=== PATIENT | male | born 1975 | race Caucasian/White ===

== ENCOUNTER → 2016-06-18 | Outpatient (CLI) | payer OTHER | LOC: CIMAGING 16:12 → FIMAGING 17:40 | PROVIDERS: ATTEND Family Medicine | DX: M54.6 Pain in thoracic spine (principal); R91.8 Other nonspecific abnormal finding of lung field ==

== ENCOUNTER 2016-07-03 09:44 | Emergency (ER) | payer OTHER ==
[2016-07-03 09:54] VITALS: BP 159/80; PULSE 80; RESP 20; TEMP 97.5; O2SAT 93
--- NOTE | 2016-07-03 10:05 | UCPHY ---
H & P Patient Type: Established Chief Complaint Nursing Narrative: SLIPPED ON 5 STEPS YESTERDAY AT HOME;PAIN, SWELLING, BRUISING R FOOT/ANKLE Time Seen by Provider: 07/03/16 09:55 HPI/ROS: CHIEF COMPLAINT: Right foot and ankle pain HISTORY OF PRESENT ILLNESS: The patient presents to the ED with complaints of moderate right foot and ankle pain after he twisted and fell yesterday on a wet floor. The patient denies head injury, neck pain, numbness, weakness, chest pain, shortness of breath or additional traumatic injury. The patient is able to ambulate with discomfort. REVIEW OF SYSTEMS: A comprehensive 10 point review of systems is otherwise negative aside from elements mentioned in the history of present illness. Source: Patient Exam Limitations: No limitations - Personal History Current Tetanus Diphtheria and Acellular Pertussis (TDAP): Yes Tetanus Vaccine Date: 2014 - Medical/Surgical History Hx Asthma: No Hx Chronic Respiratory Disease: No Hx Diabetes: No Hx Cardiac Disease: No Hx Renal Disease: No Hx Cirrhosis: No Hx Alcoholism: No Hx HIV/AIDS: No Hx Splenectomy or Spleen Trauma: No Other PMH: pmh- obesity, retinal detachment x2 - Family History Significant Family History: No pertinent family hx - Social History Smoking Status: Never smoked - Physical Exam Exam: General appearance: alert no distress Right ankle: There is swelling and tenderness over the lateral. Ankle joint is stable and there is no tenderness over the Achilles tendon. The foot is tender along the dorsum and 5th metatarsal Neurologic exam: The patient has normal sensation and motor function distal to the injury. Vascular exam: Normal pulses and capillary refill in the foot DIFFERENTIAL DIAGNOSIS: After history and physical exam differential diagnosis was considered for ankle injury including sprain, fracture, dislocation and soft tissue injury. Constitutional: Initial Vital Signs Temperature (C) 36.4 C 07/03/16 09:50 Heart Rate 80 07/03/16 09:50 Respiratory Rate 20 07/03/16 09:50 Blood Pressure 159/80 H 07/03/16 09:50 O2 Sat (%) 93 07/03/16 09:50 O2 Delivery Mode Room Air Allergies/Adverse Reactions: Penicillins Allergy (Unknown, Verified 07/03/16 09:49) Unknown Home Medications: Medication Instructions Recorded Dorzolamide-Timolol Eye Drops 11/11/13 Alphagan 0.2% 05/22/15 Cosopt (RX) 05/22/15 Allopurinol 07/03/16 Prednisone 07/03/16 Medical Decision Making - Diagnostics Imaging Results: Imaging Impressions Ankle X-Ray 07/03/16 10:04 Impression: Soft tissue swelling with no acute fracture observed. RIGHT FOOT, at 10:20 AM: Bone mineralization is preserved. There is no acute fracture or dislocation. The tarsometatarsal alignment is anatomic. A plantar calcaneal degenerative enthesophyte is seen. There is some mild soft tissue swelling. Impression: There is no acute fracture observed. Foot X-Ray 07/03/16 10:07 Impression: Soft tissue swelling with no acute fracture observed. RIGHT FOOT, at 10:20 AM: Bone mineralization is preserved. There is no acute fracture or dislocation. The tarsometatarsal alignment is anatomic. A plantar calcaneal degenerative enthesophyte is seen. There is some mild soft tissue swelling. Impression: There is no acute fracture observed. ED Course/Re-evaluation: The patient presents to the ED for evaluation of right foot and ankle pain. The patient has no evidence of an obvious fracture noted on his x-rays. The patient will be instructed to ice the area of pain and swelling. He should follow up with our on-call orthopedic surgeon for any pain or swelling which persists past 10 days as this may be the sign of an injury not seen on the x- rays today. Differential Diagnosis: Differential diagnosis considered includes fracture, sprain, dislocation Departure - Departure Disposition: Home, Routine, Self-Care Clinical Impression: Sprain of right foot Condition: Good Instructions: Foot Sprain (ED) Additional Instructions: 1. Take Ibuprofen or Motrin 600 mg by mouth three times a day. 2. Please follow up with the orthopedic surgeon you have been referred to for any pain which persists past 10 days. As this may be the sign of an injury not seen on the x-ray today. Referrals: Du Manley MD [Primary Care Provider] - As per Instructions - PQRS PQRS Measurement: NA
== END 2016-07-03 10:50 | disposition home or self-care (01) ==
LOC: CED 09:44
DX: S93.601A Unspecified sprain of right foot, initial encounter (principal); M25.571 Pain in right ankle and joints of right foot; W18.39XA Other fall on same level, initial encounter
CPT/HCPCS: 73610-PO; 73630-PO; 99214-PO; G0463-PO

== ENCOUNTER 2016-10-03 07:09 | Emergency (ER) | payer OTHER ==
[2016-10-03 07:14] VITALS: RESP 16
--- NOTE | 2016-10-03 07:33 | EDPHY ---
H & P Time Seen by Provider: 10/03/16 07:32 HPI/ROS: Chief complaint. Abdominal pain HPI. 40-year-old male with abdominal pain that started at 8:00 p.m. last night. [facility] and had sudden onset of right lower quadrant pain. He was seen at [facility] last night and had a CT scan which apparently showed only a cyst on his left kidney. They do not have the report with them. Today he had continued pain and it on the also involves his right flank. He notes his urine is dark with a reddish tint. He has no pain now however. His pain has not been worse with movement or position. It is similar to previous kidney stone that he had 1 year ago. No central or left-sided abdominal pain. No chest discomfort or trouble breathing. He reports that his penis and testicles are normal. He has had no fever. No urinary symptoms other than dark and slightly reddish urine. ROS Constitutional. no fever/chills, no weakness Eyes. no problems with vision ENT. no sore throat, no nasal drainage Cardiovascular. no chest pain Respiratory. no shortness of breath, no cough Abdominal. Right-sided abdominal pain . Dark urine MS. no calf pain/swelling, no neck/back pain, no joint pain Skin. no rash Lymph. no swollen glands Neuro. no headache, no dizziness, no difficulty walking or with speech Past Medical/Surgical History: Past medical history obesity, retinal detachment, gout Social History: , nonsmoker, no alcohol Smoking Status: Never smoked Physical Exam: General Appearance: Alert well-developed male mild distress vital signs stable Eyes: Pupils equal and round no pallor or injection. ENT, Mouth: Mucous membranes are moist. Respiratory: There are no retractions, lungs are clear to auscultation. Cardiovascular: Regular rate and rhythm. Gastrointestinal: Abdomen is soft and nontender, no masses, bowel sounds normal. Patient shows me tenderness in the right flank and right lower quadrant however it is not painful to palpation Neurological: Awake and alert, sensory and motor exams grossly normal. Skin: Warm and dry, no rashes. Musculoskeletal: Neck is supple nontender. Extremities symmetrical, full range of motion. Psychiatric: Patient is oriented X 3, there is no agitation. Constitutional: Initial Vital Signs Temperature (C) 36.3 C 10/03/16 07:12 Heart Rate 75 07/19/17 07:12 Respiratory Rate 16 10/03/16 07:12 Blood Pressure 179/97 H 10/03/16 07:12 O2 Sat (%) 92 10/03/16 07:12 O2 Delivery Mode Room Air Allergies/Adverse Reactions: Penicillins Allergy (Unknown, Verified 07/03/16 09:49) Unknown Home Medications: Medication Instructions Recorded Dorzolamide-Timolol Eye Drops 11/11/13 Alphagan 0.2% 05/22/15 Cosopt (RX) 05/22/15 Allopurinol 07/03/16 Prednisone 07/03/16 Cephalexin [Keflex (*)] 500 mg PO TID #21 cap 10/03/16 oxyCODONE/APAP 5/325 [Percocet 1 tab PO Q4-6PRN PRN #10 tab 10/03/16 5/325] Medical Decision Making - Diagnostics Imaging Results: CT abdomen and pelvis without IV contrast shows a 1-2 mm stone at the right UVJ. No proximal hydronephrosis. Incidental fatty liver finding Procedures: IV normal saline ED Course/Re-evaluation: Re-evaluation 8:55 a.m.. Patient, his , and I discussed laboratory evaluation and recommendation for CT scan as this is likely kidney stone. They expressed understanding and agreement. Patient continues without pain Re-evaluation again 9:25 a.m.. The patient and I discussed the CT results. He is comfortable with outpatient follow-up. We discussed treatment plan including criteria for return importance of follow-up and further evaluation. He expresses understanding and agreement Patient is currently without any pain Differential Diagnosis: I considered appendicitis, diverticulitis, urinary tract infection including pyelonephritis, kidney stone - Data Points Laboratory Results: Laboratory Results 10/03/16 07:20 10/03/16 07:20 10/03/16 10/03/16 10/03/16 07:20 07:20 07:20 WBC 11.20 10^3/uL H 10^3/uL (3.80-9.50) RBC 4.94 10^6/uL 10^6/uL (4.40-6.38) Hgb 14.9 g/dL g/dL (13.7-17.5) Hct 45.1 % % (40.0-51.0) MCV 91.3 fL fL (81.5-99.8) MCH 30.2 pg pg (27.9-34.1) MCHC 33.0 g/dL g/dL (32.4-36.7) RDW 13.0 % % (11.5-15.2) Plt Count 281 10^3/uL 10^3/uL (150-400) MPV 10.0 fL fL (8.7-11.7) Neut % (Auto) 60.5 % % (39.3-74.2) Lymph % (Auto) 25.8 % % (15.0-45.0) [place] % (Auto) 9.0 % % (4.5-13.0) Eos % (Auto) 3.4 % % (0.6-7.6) Baso % (Auto) 0.8 % % (0.3-1.7) Nucleat RBC Rel Count 0.0 % % (0.0-0.2) Absolute Neuts (auto) 6.77 10^3/uL H 10^3/uL (1.70-6.50) Absolute Lymphs (auto) 2.89 10^3/uL 10^3/uL (1.00-3.00) Absolute Monos (auto) 1.01 10^3/uL H 10^3/uL (0.30-0.80) Absolute Eos (auto) 0.38 10^3/uL 10^3/uL (0.03-0.40) Absolute Basos (auto) 0.09 10^3/uL 10^3/uL (0.02-0.10) Absolute Nucleated RBC 0.00 10^3/uL 10^3/uL (0-0.01) Immature Gran % 0.5 % % (0.0-1.1) Immature Gran # 0.06 10^3/uL 10^3/uL (0.00-0.10) Sodium 147 mEq/L H mEq/L (134-144) Potassium 4.4 mEq/L mEq/L (3.5-5.2) Chloride 111 mEq/L H mEq/L (97-110) Carbon Dioxide 23 mEq/l mEq/l (22-31) Anion Gap 13 mEq/L mEq/L (8-16) BUN 17 mg/dL mg/dL (7-23) Creatinine 0.9 mg/dL mg/dL (0.7-1.3) Estimated GFR > 60 Glucose 87 mg/dL mg/dL (70-100) Calcium 9.4 mg/dL mg/dL (8.5-10.4) Urine Color RED Urine Appearance MODERATELY TURBID Urine pH 5.0 (5.0-7.5) Ur Specific Tok 1.020 (1.002-1.030) Urine Protein 2+ H (NEGATIVE) Urine Ketones NEGATIVE (NEGATIVE) Urine Blood 2+ H (NEGATIVE) Urine Nitrate NEGATIVE (NEGATIVE) Urine Bilirubin NEGATIVE (NEGATIVE) Urine Urobilinogen NEGATIVE EU EU (0.2-1.0) Ur Leukocyte Esterase NEGATIVE (NEGATIVE) Urine RBC 50-182 /hpf H /hpf (0-3) Urine WBC 25-50 /hpf H /hpf (0-3) Ur Epithelial Cells NONE SEEN /lpf /lpf (NONE-1+) Urine Bacteria TRACE /hpf H /hpf (NONE SEEN) Urine Mucus 3+ /lpf H /lpf (NONE-1+) Urine Glucose NEGATIVE (NEGATIVE) Medications Given: Discontinued Medications Sodium Chloride (Ns) 1,000 mls @ 0 mls/hr IV EDNOW ONE; Wide Open PRN Reason: Protocol Stop: 10/03/16 07:43 Last Admin: 10/03/16 07:49 Dose: 1,000 mls Departure - Departure Disposition: Home, Routine, Self-Care Clinical Impression: Renal colic on right side Condition: Good Instructions: Kidney Stones (ED) Additional Instructions: Drink plenty of fluids to keep your urine clear. Cephalexin as antibiotic. Strain her urine to collect kidney stone and save for analysis. Ibuprofen 600 mg every 6 hours next 24 hours. Percocet in addition if necessary for pain. Return for worsening pain, fever, vomiting. Recheck in 2 days. Referrals: Du Manley MD [Primary Care Provider] - 2-3 days without fail Maximus Marin MD [Medical Doctor] - As per Instructions Prescriptions: Cephalexin [Keflex (*)] 500 mg PO TID #21 cap oxyCODONE/APAP 5/325 [Percocet 5/325] 1 tab PO Q4-6PRN PRN #10 tab PRN Reason: Pain, Moderate
[2016-10-03] MEDS ORDERED: NS 1,000 ML IV ONE (07:42)
[2016-10-03 07:47] LABS: % IMMATURE GRANULYOCYTES 0.5 % (0.0-1.1); ABSOLUTE IMMATURE GRANULOCYTES 0.06 10^3/uL (0.00-0.10); ADD DIFF? NO; ADD MORPH? NO; ADD SCAN? NO; ATYPICAL LYMPHOCYTE FLAG 0 (0-99); FRAGMENT RBC FLAG 0 (0-99); HEMATOCRIT 45.1 % (40.0-51.0); HEMOGLOBIN 14.9 g/dL (13.7-17.5); LEFT SHIFT FLG 0 (0-99); LIPEMIA HEMOLYSIS FLAG 80 (0-99); MEAN CELL HEMOGLOBIN 30.2 pg (27.9-34.1); MEAN CELL VOLUME 91.3 fL (81.5-99.8); PLATELET CLUMPS FLAG 0 (0-99); PLATELET COUNT 281 10^3/uL (150-400); RED BLOOD CELL COUNT 4.94 10^6/uL (4.40-6.38)
[2016-10-03 07:54] LABS: ANION GAP 13 mEq/L (8-16); CALCIUM 9.4 mg/dL (8.5-10.4); CARBON DIOXIDE 23 mEq/l (22-31); CHLORIDE 111 mEq/L (97-110); CREATININE 0.9 mg/dL (0.7-1.3); GLOMERULAR FILTRATION RATE > 60; GLUCOSE 87 mg/dL (70-100); POTASSIUM 4.4 mEq/L (3.5-5.2); SODIUM 147 mEq/L (134-144)
[2016-10-03 07:58] LABS: COLOR RED; LEUKOCYTE ESTERASE,URINE NEGATIVE (NEGATIVE); NITRITE,URINE NEGATIVE (NEGATIVE)
[2016-10-03 08:12] LABS: BACTERIA TRACE /hpf (NONE SEEN); MUCUS 3+ /lpf (NONE-1+); RBC,URINE 50-182 /hpf (0-3); WBC,URINE 25-50 /hpf (0-3)
[2016-10-03 09:54] VITALS: BP 147/89; PULSE 73; TEMP 98.4; O2SAT 96
== END 2016-10-03 09:53 | disposition home or self-care (01) ==
DX: N23 Unspecified renal colic (principal); E86.9 Volume depletion, unspecified

== ENCOUNTER 2017-12-23 06:56 | Emergency (ER) | payer OTHER ==
--- NOTE | 2017-12-23 06:59 | EDPHY ---
H & P Time Seen by Provider: 12/23/17 07:06 HPI/ROS: CHIEF COMPLAINT: Left flank pain HISTORY OF PRESENT ILLNESS: Patient states that he thinks he has a kidney stone. Feels identical to his symptoms from last summer. He had a little bit of chills last night has had a cough for couple of days and this morning at 5: 00 a.m. Developed left flank pain which radiates around to his anterior abdomen. Not better worse with movement, his urine was a little bit darker than usual, no dysuria or hematuria or testicular or penile symptoms. No injury or trauma. Symptoms were severe earlier but are mild now. REVIEW OF SYSTEMS: Eye: no change in vision ENT: no sore throat Cardiac: no chest pain or syncope Pulmonary: No sputum production, not short of breath Abdomen: No vomiting or diarrhea Musculoskeletal: HPI Skin: no rash Neuro: no headache Constitutional: no fever : HPI A comprehensive 10 point review of systems is otherwise negative aside from elements mentioned in the history of present illness. PAST MEDICAL HISTORY: Renal colic on CT dated 10/03/2016, retinal detachment, gout Family history: Negative for renal colic Social history: Primary care is Dr. Du Manley General Appearance: Alert and conversant, cooperative. Eyes: No scleral icterus. ENT, Mouth: Normal mucous membranes. Respiratory: Normal respiratory effort, breath sounds equal, lungs are clear to auscultation. No rhonchi or rales. Cardiovascular: Regular rate and rhythm. Gastrointestinal: Abdomen is soft and non tender. Normal male , no rebound or guarding. No pulsatile mass. Neurological: Alert, face symmetric, normal motor and sensory in extremities. Skin: Warm and dry, no rashes. No evidence of zoster. Musculoskeletal: No peripheral edema. Psychiatric: Not agitated. Emergency Department course/MDM: Patient presents with symptoms identical to previous renal colic. He has a exam not suggestive of acute surgical abdominal process or vascular catastrophe. I discussed treating him symptomatically and empirically for left-sided renal colic, if his urine does not show signs of infection, and is supportive with hematuria on dip. Patient states understanding and agreement with the plan. He also understands that we are trying to avoid ionizing radiation, but can't be 100% certain he does not have a large stone or alternative diagnosis with this approach. It is possible that he may have a stone that requires intervention later. 818: Urine dip positive for blood only, results discussed with the patient. Smoking Status: Never smoked Constitutional: Initial Vital Signs Temperature (C) 36.5 C 12/23/17 07:00 Heart Rate 70 12/23/17 07:00 Respiratory Rate 16 12/23/17 07:00 Blood Pressure 159/88 H 12/23/17 07:00 O2 Sat (%) 95 12/23/17 07:00 O2 Delivery Mode Room Air Allergies/Adverse Reactions: Penicillins Allergy (Unknown, Verified 12/23/17 07:02) Unknown Home Medications: Medication Instructions Recorded Dorzolamide-Timolol Eye Drops 11/11/13 Alphagan 0.2% 05/22/15 Cosopt (RX) 05/22/15 Allopurinol 07/03/16 oxyCODONE/APAP 5/325 [Percocet] 1 tab PO Q4-6PRN PRN #11 tab 12/23/17 Medical Decision Making - Data Points Laboratory Results: 12/23/17 07:28 Urine Color YELLOW Urine Appearance CLEAR Urine pH 5.0 (5.0-7.5) Ur Specific [place] 1.017 (1.002-1.030) Urine Protein NEGATIVE (NEGATIVE) Urine Ketones NEGATIVE (NEGATIVE) Urine Blood 3+ H (NEGATIVE) Urine Nitrate NEGATIVE (NEGATIVE) Urine Bilirubin NEGATIVE (NEGATIVE) Urine Urobilinogen NEGATIVE EU EU (0.2-1.0) Ur Leukocyte Esterase NEGATIVE (NEGATIVE) Urine RBC Pending Urine WBC Pending Ur Epithelial Cells Pending Urine Glucose NEGATIVE (NEGATIVE) Medications Given: Discontinued Medications Ibuprofen (Motrin) 600 mg PO EDNOW ONE Stop: 12/23/17 07:18 Last Admin: 12/23/17 07:23 Dose: 600 mg Departure - Departure Disposition: Home, Routine, Self-Care Clinical Impression: Renal colic on left side Condition: Good Instructions: Renal Colic (ED) Additional Instructions: Please follow-up with your primary care doctor or referral urologist later this week if still symptomatic. Return for worsening or severe pain, fever, new symptoms. Referrals: Du Manley MD [Medical Doctor] - As per Instructions Deonte Wilson MD [Medical Doctor] - As per Instructions Prescriptions: oxyCODONE/APAP 5/325 [Percocet] 1 tab PO Q4-6PRN PRN #11 tab PRN Reason: Pain
[2017-12-23] MEDS ORDERED: IBUPROFEN 600 MG TAB PO ONE (07:17)
[2017-12-23 08:21] VITALS: BP 145/78
== END 2017-12-23 08:28 | disposition home or self-care (01) ==
DX: N23 Unspecified renal colic (principal)